=== PATIENT | female | born 1960 | race Caucasian/White ===

== ENCOUNTER 2023-07-27 06:52 | Day surgery (SDC) | payer OTHER ==
[~2023-07-27] VITALS: Ht 152.4 cm; Wt 80.0 kg
[2023-07-27 06:57] VITALS: TEMP 97.9; O2SAT 96
[2023-07-27] MEDS: SODIUM CHLORIDE 0.9% 1,000 ML IV ONE (07:00)
[2023-07-27] MEDS ORDERED: CEFAZOLIN 1000MG PREMIX 50 ML IV ONE (07:00)
[2023-07-27] MEDS ORDERED: TRYPAN BLUE 0.5 ML DISP.SYRIN IO ONE (08:01)
[2023-07-27] MEDS ORDERED: TRIAMCINOLONE ACETONIDE 40MG/ML 1ML VIAL ONE (08:01)
[2023-07-27 08:06] LABS: BASOPHILS % 0.3 % (0.0-2.0); EOSINOPHILS % 5.1 % (0.0-5.0); HEMATOCRIT. 39.7 % (36.0-48.0); HEMOGLOBIN. 13.3 g/dL (12.0-16.0); LYMPHOCYTES % 37.7 % (20.0-50.0); MEAN CORPUSCULAR HEMOGLOBIN 27.4 pg (28.0-32.0); MEAN CORPUSCULAR HGB CONC 33.5 g/dL (31.0-37.0); MEAN CORPUSCULAR VOLUME 81.8 fL (81.0-99.0); MEAN PLATELET VOLUME 8.9 fl (7.4-10.4); MONOCYTES % 4.4 % (2.0-8.0); NEUTROPHILS % 52.5 % (40.0-76.0); PLATELET 318 x1000/uL (130-400); RED BLOOD CELL COUNT 4.85 mill/uL (4.2-5.4); RED CELL DISTRIBUTION WIDTH 14.6 % (11.6-14.6); WHITE BLOOD COUNT 10.1 x1000/uL (4.5-11.0)
[2023-07-27 08:16] LABS: INR 0.9; PROTHROMBIN TIME 10.4 sec (9.6-11.0)
[2023-07-27 08:21] LABS: CHLORIDE 102 mEq/L (98-107); POTASSIUM 4.1 mEq/L (3.5-5.1); SODIUM 136 mEq/L (136-145)
[2023-07-27 08:22] LABS: CARBON DIOXIDE 27 mEq/L (21-32)
[2023-07-27 08:27] LABS: CREATININE 0.7 mg/dL (0.6-1.0); GLUCOSE 289 mg/dL (70-105); UREA NITROGEN BLOOD 14 mg/dL (9-23)
[2023-07-27 08:29] LABS: ALANINE AMINOTRANSFERASE 22 IU/L (10-49); ALBUMIN 4.2 g/dL (3.2-4.8); ASPARTATE AMINOTRANSFERASE 17 IU/L (<34); BILIRUBIN TOTAL 0.5 mg/dL (0.1-1.0)
[2023-07-27 08:30] LABS: PROTEIN TOTAL 6.6 g/dL (6.0-8.3)
[2023-07-27 08:40] VITALS: BP 152/86; PULSE 89; RESP 18
[2023-07-27 08:56] LABS: CALCIUM 9.9 mg/dL (8.7-10.4)
[2023-07-27] MEDS ORDERED: ACETYLCHOLINE CHLORIDE INTRAOCULAR SOLUTION 1:100 ELECTROLYTE DILUENT IO ONE (09:00)
[2023-07-27] MEDS ORDERED: MIDAZOLAM HCL 2 MG/2 ML VIAL ONE (13:51)
[2023-07-27] MEDS ORDERED: PROPOFOL 200MG/20ML VIAL IV ONE (13:55)
[2023-07-27] MEDS ORDERED: DEXAMETHASONE 4MG/ML 1ML VIAL ONE (14:09)
[2023-07-27] MEDS ORDERED: FENTANYL CITRATE/PF 50MCG/ML 2ML VIAL IV PRN (14:15)
[2023-07-27] MEDS ORDERED: ONDANSETRON HCL 4MG/2ML INJ IV PRN (14:15)
[2023-07-27] MEDS ORDERED: HYDROMORPHONE HCL/PF 2MG/ML CPJ IV PRN (14:15)
[2023-07-27] MEDS ORDERED: CEFAZOLIN SODIUM 1000MG/VIAL ONE (14:15)
== END 2023-07-27 16:25 | disposition home or self-care (01) ==
LOC: ER 06:52 → OR 13:50
PROVIDERS: ATTEND Ophthalmology
DX: T85.398A Other mechanical complication of other ocular prosthetic devices, implants and grafts, initial encounter (principal); H40.10X0 Unspecified open-angle glaucoma, stage unspecified; E11.39 Type 2 diabetes mellitus with other diabetic ophthalmic complication; H42 Glaucoma in diseases classified elsewhere; I10 Essential (primary) hypertension; Z79.84 Long term (current) use of oral hypoglycemic drugs; Z79.899 Other long term (current) drug therapy; Z90.710 Acquired absence of both cervix and uterus; Z98.890 Other specified postprocedural states; X58.XXXA Exposure to other specified factors, initial encounter; Y93.89 Activity, other specified; Y92.89 Other specified places as the place of occurrence of the external cause; Y99.8 Other external cause status
CPT/HCPCS: 66185; 99285; 80053; 82962; 85025; 85610; 86850; 86900; 86901; 36415; 93005; J3490 ×3; J0690; J1100; J2250; J2405; J2704; J3301; J7030; Q9957